=== PATIENT | female | born 1995 | race Caucasian/White ===

== ENCOUNTER 2016-06-21 17:10 | Emergency (ER) | payer OTHER ==
[~2016-06-21] VITALS: Ht 170.2 cm; Wt 104.5 kg
[2016-06-21 17:27] VITALS: TEMP 96.9
[2016-06-21] MEDS ORDERED: MIRENA52 MG IY (17:30)
[2016-06-21] MEDS ORDERED: FLEXERIL 1010 MG/TAB PO (19:47)
[2016-06-21 20:06] VITALS: BP 107/77; PULSE 77
== END 2016-06-21 20:07 | disposition home or self-care (01) ==
LOC: COL.ER 17:10
DX: S16.1XXA Strain of muscle, fascia and tendon at neck level, initial encounter (principal); S46.912A Strain of unspecified muscle, fascia and tendon at shoulder and upper arm level, left arm, initial encounter; V43.52XA Car driver injured in collision with other type car in traffic accident, initial encounter; Y92.410 Unspecified street and highway as the place of occurrence of the external cause
CPT/HCPCS: J1885; J2360

== ENCOUNTER 2016-12-03 23:13 | Emergency (ER) | payer OTHER ==
[~2016-12-03] VITALS: Ht 172.7 cm; Wt 109.1 kg
[~2016-12-03 23:13] MED LIST: FLEXERIL 1010 MG/TAB PO; MIRENA52 MG IY
[2016-12-03 23:19] VITALS: BP 131/88; TEMP 97.3
[2016-12-04 01:12] VITALS: PULSE 78
== END 2016-12-04 01:18 | disposition home or self-care (01) ==
LOC: COL.ER 23:13
DX: S61.412A Laceration without foreign body of left hand, initial encounter (principal); W25.XXXA Contact with sharp glass, initial encounter; Y92.69 Other specified industrial and construction area as the place of occurrence of the external cause

== ENCOUNTER 2016-12-30 12:30 | Outpatient (RCR) | payer OTHER | END 2017-02-02 09:54 | disposition still patient (30) | LOC: WSOT 12:30 | DX: S61.412D Laceration without foreign body of left hand, subsequent encounter (principal); W25.XXXD Contact with sharp glass, subsequent encounter; Y92.511 Restaurant or cafe as the place of occurrence of the external cause ==

== ENCOUNTER 2017-04-27 23:47 | Emergency (ER) | payer OTHER ==
[~2017-04-27] VITALS: Ht 167.6 cm; Wt 104.5 kg
[2017-04-27 23:50] VITALS: BP 141/100; PULSE 74; TEMP 97.1
== END 2017-04-28 00:52 | disposition home or self-care (01) ==
LOC: COL.ER 23:47
DX: S06.0X0A Concussion without loss of consciousness, initial encounter (principal); S00.83XA Contusion of other part of head, initial encounter; W18.2XXA Fall in (into) shower or empty bathtub, initial encounter